=== PATIENT | male | born 1965 | race Caucasian/White ===

== ENCOUNTER 2017-11-09 07:03 | Emergency (ER) | payer BC ==
[2017-11-09 07:20] VITALS: BP 123/74
--- NOTE | 2017-11-09 07:29 | UC ---
Hip/Pelvis Pain - HPI Summary HPI Summary: Patient is a 52-year-old male with the onset of pain overlying his left greater trochanter that started yesterday p.m. He denies any trauma. He was uncomfortable last night and woke up frequently. He is not taking anything for his pain. Pain worsens if he attempts to lift his left leg. He has no numbness or tingling. - History Of Current Complaint Chief Complaint: UCLowerExtremity Stated Complaint: LFT LEG PAIN Time Seen by Provider: 11/09/17 07:20 Hx Obtained From: Patient Onset/Duration: Gradual Onset, Lasting Hours Severity Initially: Moderate Severity Currently: Moderate Pain Intensity: 7 Pain Scale Used: 0-10 Numeric Location: Discrete At: - left greater troch Character Of Pain: Aching Alleviating Factor(s): Position Associated Signs And Symptoms: Positive: Negative - Allergies/Home Medications Allergies/Adverse Reactions: Allergies Allergy/AdvReac Type Severity Reaction Status Date / Time No Known Allergies Allergy Verified 11/09/17 07:09 Home Medications: Home Medications Dulaglutide (NF) [Trulicity (NF)] 0.75 mg SC DAILY 11/09/17 [History Confirmed 11/09/17] Empagliflozin [Jardiance] 25 mg PO DAILY 11/09/17 [History Confirmed 11/09/17] Losartan TAB* [Cozaar TAB*] 50 mg PO DAILY 11/09/17 [History Confirmed 11/09/17] PMH/Surg Hx/FS Hx/Imm Hx Previously Healthy: Yes Endocrine History: Diabetes, Dyslipidemia Cardiovascular History: Hypertension - Surgical History Surgical History: Yes Surgery Procedure, Year, and Place: stent placement - Family History Known Family History: Positive: None - Social History Alcohol Use: Occasionally Substance Use Type: None Smoking Status (MU): Never Smoked Tobacco - Immunization History Most Recent Influenza Vaccination: Fall 2014 Review of Systems Constitutional: Negative Skin: Negative Eyes: Negative ENT: Negative Respiratory: Negative Cardiovascular: Negative Gastrointestinal: Negative Genitourinary: Negative Motor: Negative Neurovascular: Negative Musculoskeletal: Arthralgia, Myalgia Neurological: Negative Psychological: Negative Is Patient Immunocompromised?: No All Other Systems Reviewed And Are Negative: Yes Physical Exam Triage Information Reviewed: Yes Appearance: Well-Appearing, No Pain Distress, Well-Nourished Vital Signs: Initial Vital Signs Temp 98.6 F 11/09/17 07:13 Pulse 80 11/09/17 07:13 Resp 15 11/09/17 07:13 BP 123/74 11/09/17 07:13 Pulse Ox 98 11/09/17 07:13 Vital Signs Reviewed: Yes Eyes: Positive: Conjunctiva Clear ENT: Positive: Hearing grossly normal. Negative: Nasal congestion, Nasal drainage, Tonsillar swelling, Tonsillar exudate, Muffled voice, Hoarse voice Neck: Positive: Supple, Nontender Respiratory: Positive: Lungs clear, Normal breath sounds, No respiratory distress, No accessory muscle use Cardiovascular: Positive: RRR, No Murmur Musculoskeletal: Positive: ROM Limited @ - left hip/pain with internal rotation , tender over greater troch, slightly antalgic gait Neurological: Positive: Alert Psychological Exam: Normal Skin Exam: Normal Diagnostics - Radiology No standard instances Xray Interpretation: No Acute Changes - left hip Radiology Interpretation Completed By: Radiologist Hip Injury Course/Dx - Differential Dx/Diagnosis Provider Diagnoses: left greater trochanteric bursitis Discharge - Sign-Out/Discharge Documenting (check all that apply): Patient Departure - Discharge Plan Condition: Stable Disposition: HOME Patient Education Materials: Hip Bursitis (ED) Referrals: Kami Jett MD [Primary Care Provider] - If Needed Additional Instructions: you have a greater trochanteric bursitis I suggest heat (you may try alternating heat with ice packs) aleve 1-2 twice daily If not improving I suggest you see an orthopedist - Billing Disposition and Condition Condition: STABLE Disposition: Home
--- NOTE | 2017-11-09 07:55 | RAD ---
HISTORY: atraumatic pain/greater troch COMPARISONS: None VIEWS: 3, Frontal view of the pelvis with frontal and frog-leg views of the left hip FINDINGS: BONE DENSITY: Normal. BONES: There is no displaced fracture. JOINTS: There is no arthropathy. ALIGNMENT: There is no dislocation. SOFT TISSUES: Unremarkable. OTHER FINDINGS: Mild degenerative changes are noted of the lower lumbar spine. IMPRESSION: NO ACUTE OSSEOUS INJURY. IF SYMPTOMS PERSIST, RECOMMEND REPEAT IMAGING.
== END 2017-11-09 08:11 | disposition home or self-care (01) ==
LOC: UCCORT 07:03
DX: M70.62 Trochanteric bursitis, left hip (principal); E11.9 Type 2 diabetes mellitus without complications; I10 Essential (primary) hypertension; Z79.84 Long term (current) use of oral hypoglycemic drugs; Z79.899 Other long term (current) drug therapy
CPT/HCPCS: 99211; G0463